=== PATIENT | female | born 2000 | race Caucasian/White ===

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

== ENCOUNTER 2019-04-29 20:44 | Emergency (ER) | payer OTHER ==
[2019-04-29] MEDS ORDERED: Albuterol/Ipratropium 3.0-0.5 MG/3 ML Neb Soln NEB ONE (21:33)
--- NOTE | 2019-04-29 21:39 | EDM.PDOC ---
ED HPI GENERAL MEDICAL PROBLEM - General Chief Complaint: Respiratory Problem Stated Complaint: SOB ASTHMA Time Seen by Provider: 04/29/19 21:15 Source of Information: Reports: Patient History Limitations: Reports: No Limitations - History of Present Illness INITIAL COMMENTS - FREE TEXT/NARRATIVE: 19-year-old female with a long history of asthma, patient has an inhaler and nebulizer but has not been using it because her father told her that with the coronavirus, if she feels she needs to use her medicine she should be seen instead. She has had no fever or chills. No exposure to smoke or animals or any unusual environmental problems. She looks perfectly comfortable. Onset: Unknown/Unsure Duration: Day(s): (3 days of increased shortness of breath) Associated Symptoms: Reports: Cough. Denies: Fever/Chills - Related Data Allergies Allergy/AdvReac Type Severity Reaction Status Date / Time Sulfa (Sulfonamide Allergy Rash Verified 04/29/19 21:05 Antibiotics) Home Meds: Home Meds Albuterol Sulfate [Albuterol Sulfate Hfa] 2 puff IN Q4H PRN 12/16/18 [History] Etonogestrel [Nexplanon] 1 unit IMPLANT ASDIRECTED 12/16/18 [History] Albuterol [Proventil Neb Soln] 1 ampule NEB Q4H PRN 04/29/19 [History] hydrOXYzine pamoate [Hydroxyzine Pamoate] 25 mg PO QID PRN 04/29/19 [History] Past Medical History HEENT History: Reports: Impaired Vision Cardiovascular History: Reports: Arrhythmia, Heart Murmur, Other (See Below) Other Cardiovascular History: pulmonary artiesia, 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 Respiratory History: Reports: Asthma, Pneumonia, Recurrent Musculoskeletal History: Reports: Fracture, Other (See Below) Other Musculoskeletal History: toe and knee corrections Neurological History: Reports: Migraines Psychiatric History: Reports: Anxiety, Depression, Suicide Attempt, Suicidal Ideation Endocrine/Metabolic History: Reports: Obesity/BMI 30+ - Past Surgical History Cardiovascular Surgical History: Reports: Other (See Below) Other Cardiovascular Surgeries/Procedures: open heart repair Musculoskeletal Surgical History: Reports: Other (See Below) Other Musculoskeletal Surgeries/Procedures:: toe and knee corrections Social & Family History - Tobacco Use Smoking Status *Q: Never Smoker ED ROS GENERAL - Review of Systems Review Of Systems: See Below (Mild cough) Constitutional: Denies: Fever, Chills Respiratory: Reports: Shortness of Breath, Wheezing, Cough Cardiovascular: Denies: Chest Pain GI/Abdominal: Denies: Nausea, Vomiting Skin: Reports: No Symptoms ED EXAM, GENERAL - Physical Exam Exam: See Below Exam Limited By: No Limitations General Appearance: Alert, No Apparent Distress Throat/Mouth: Normal Inspection Head: Atraumatic Respiratory/Chest: No Respiratory Distress, Lungs Clear, Other (Even with forced expiration I hear minimal if any wheezing) Neurological: Alert, Oriented Course - Vital Signs Last Recorded V/S: Last Vital Signs Temp 98.0 F 04/29/19 21:11 Pulse 69 04/29/19 21:11 Resp 18 04/29/19 21:11 BP 99/64 04/29/19 21:11 Pulse Ox 96 04/29/19 21:11 - Orders/Labs/Meds Orders: Active Orders 24 hr Category Date Time Status RT Aerosol Therapy [RC] ASDIRECTED Care 04/29/19 21:34 Active Meds: Medications Discontinued Medications Generic Name Dose Route Start Last Admin Trade Name Diane PRN Reason Stop Dose Admin Albuterol/Ipratropium 3 ml 04/29/19 21:33 04/29/19 21:38 Duoneb 3.0-0.5 Mg/3 Ml NEB 04/29/19 21:34 3 ml ONETIME ONE Administration - Re-Assessments/Exams Free Text/Narrative Re-Assessment/Exam: 04/29/19 21:37 Patient was given a DuoNeb and encouraged to use her nebulizer and inhaler as needed over the next several days. She was also given an instymed for additional albuterol ampules. Return anytime if worsening despite treatment such as high fever or increased shortness of breath. Departure - Departure Time of Disposition: 21:52 Disposition: Home, Self-Care 01 Clinical Impression: Asthma with acute exacerbation Qualifiers: Asthma severity: mild Asthma persistence: intermittent Qualified Code(s): J45.21 - Mild intermittent asthma with (acute) exacerbation - Discharge Information Instructions: Asthma, Adult Referrals: Donna Terry CNM [Primary Care Provider] - Forms: ED Department Discharge Care Plan Goals: Continue activity as tolerated, use your nebulizer and inhaler as directed for shortness of breath or wheezing. Return or recheck if worsening such as fever or increased shortness of breath despite treatment. Sepsis Event Note - Evaluation Sepsis Screening Result: No Definite Risk - Focused Exam Vital Signs: Vital Signs Temp Pulse Resp BP Pulse Ox 04/29/19 21:11 98.0 F 69 18 99/64 96 Date Exam was Performed: 04/30/19 Time Exam was Performed: 02:12 - My Orders Last 24 Hours: My Active Orders 04/29/19 21:34 RT Aerosol Therapy [RC] ASDIRECTED - Assessment/Plan Last 24 Hours: My Active Orders 04/29/19 21:34 RT Aerosol Therapy [RC] ASDIRECTED
== END 2019-04-29 21:52 | disposition home or self-care (01) ==
LOC: JP.ED 20:44
DX: J45.21 Mild intermittent asthma with (acute) exacerbation (principal); E66.9 Obesity, unspecified; Z68.1 Body mass index [BMI] 19.9 or less, adult; Z88.2 Allergy status to sulfonamides; Z79.899 Other long term (current) drug therapy
CPT/HCPCS: 94640; 99284-25; J7620-GY